=== PATIENT | female | born 1990 | race Asian ===

== ENCOUNTER 2016-10-29 01:15 | Observation (INO) | payer OTHER, BC ==
[~2016-10-29] VITALS: Ht 162.6 cm; Wt 61.2 kg
[~2016-10-29 01:15] MED LIST: FERR-43 PO; PREN-88 PO
[2016-10-29] MEDS ORDERED: PREN-88 PO (01:35)
[2016-10-29 02:26] LABS: CLARITY URINE CLEAR (CLEAR); COLOR URINE YELLOW (YELLOW); GLUCOSE URINE NEGATIVE (NEGATIVE); KETONES URINE NEGATIVE (NEGATIVE); LEUKOCYTE ESTERASE URINE NEGATIVE (NEGATIVE); NITRITE URINE NEGATIVE (NEGATIVE); OCCULT BLOOD URINE NEGATIVE (NEGATIVE); PH URINE 7.5 (4.5-8.0); PROTEIN URINE NEGATIVE (NEGATIVE); SPECIFIC GRAVITY URINE 1.007 (1.005-1.030); UROBILINOGEN URINE 0.2 E.U./dL (0.2-1.0)
== END 2016-10-29 03:15 | disposition home or self-care (01) ==
LOC: L&D 01:15
PROVIDERS: ADMIT Obstetrics & Gynecology; ATTEND Obstetrics & Gynecology
DX: Z34.90 Encounter for supervision of normal pregnancy, unspecified, unspecified trimester (principal)
CPT/HCPCS: 81003; 99281; G0378